=== PATIENT | female | born 1970 | race Caucasian/White ===

== ENCOUNTER 2016-06-12 19:36 | Inpatient (IN) | payer OTHER ==
[~2016-06-12] VITALS: Ht 170.2 cm; Wt 92.1 kg
[~2016-06-12 19:36] MED LIST: ABILIFY2 M1 PO; AMIODARONE HCL200 MG PO; ASPIRIN FOR CHI81 M1 PO; ASPIRIN325 MG PO; ATORVASTATIN CA40 M1 PO; CAT0.1 PO; CLINDAMYCIN; CLONAZEPAM1 MG PO; CLONIDINE HCL0.1 MG PO; CLOPIDOGREL75 M1 PO; COL100 PO; COLACE100 MG PO; COREG12.5 MG PO; DORZOLAMIDE HYD10 ML OD; ENALAPRIL MALEA10 MG PO; FLUTICASON0.05 MG/Ac; GABAPENTIN100 M2 PO; GLIPIZIDE2.5 M1 PO; GLU5 PO; GOOD SENSE ASP325 MG PO; HUMALOG100 U/ML SC; HYDRALAZINE HYD50 MG PO; HYDRALAZINE50 M1 PO; ISOSORBIDE DINIT5 M2 PO; ISTALOL2.5 ML OP; KAYEN PR; KLO1 PO; LAC PO; LACTULOSE10 GM/152 PO; LANTI SQ; LANTUS SOLOS100 U/M1 SC; LANTUS SOLOS100 U/M1 SQ; LEVAQUIN250 MG PO; LEVAQUIN750 MG PO; LEVEMIR100 U/M1 SQ; LEVOTHROID SOD0.1 MG PO; LEVOTHYROXIN0.075 M2 PO; LOP50 PO; METOPROLOL TART50 MG PO; NEP PO; NEPHRO-VITE VITA1 EA PO; NEPHRO-VITE1 TAB PO; NEU100 PO; NIA500 PO; NIFEDIPINE ER30 MG PO; NOR10T PO; NORCO1 TA1 PO; NOVI SQ; NOVOLIN N SQ; OMEPRAZOLE DR20 M1 PO; OMEPRAZOLE20 M2 PO; PHE25 PO; PLA75 PO; PREOS; PREOS OD; PRI20 PO; PRO10 PO; PROCARDIA XL90 MG PO; PROMETHAZINE HY25 M1 PO; REG5 PO; RENVELA PO; RENVELA800 M1 PO; SENSIPAR PO; SENSIPAR30 M1 GT; SENSIPAR30 M1 PO; SERTRALINE100 M1 PO; STOOL SOFTENER100 MG PO; SYN75 PO; TRA50 PO; TRAZODONE HYDR150 MG PO; TRAZODONE150 M1 PO; TRICOR145 M1 PO; TRUOS OD; TRUOS OU; ZOC10 PO; ZOF4 PO; ZOL100 PO; ZOLOFT100 MG PO
--- NOTE | 2016-06-12 19:49 | NUR ---
EKG IN PROGRESS IN TRIAGE
--- NOTE | 2016-06-12 19:54 | NUR ---
PT TO ED LOBBY WITH SPOUSE TO WAIT FOR NEXT AVAILABLE BED. PT IN NO ACUTE OR RESP DISTRESS.
[2016-06-13] VITALS (7 sets, daily range): BP systolic 115–170; BP diastolic 44–76
--- NOTE | 2016-06-13 00:15 | NUR ---
PT PRESENTS TO ED WITH C/O CHEST PAIN STARTING TODAY. PT REPORTS PRESSURE LIKE PAIN 10/19. PT STATES SHE MISSED HER DIALYIS TODAY, STATES, "I'M DEPRESSED AND HOMELESS, AND I'M REALLY STRESSED". PT REPORTS GOING TO DIALYSIS ON MON, SUN, FRI. PT C/O SOB STARTING TODAY. PT DENIES ANY N/V/D/C. RESPIRATIONS EVEN AND UNLABORED. NO ACUTE DISTRESS NOTED. BED IN LOW POSITION. CALL LIGHT WITHIN REACH.
[2016-06-13 00:58] LABS: BASOPHIL % 1.3 % (0-2); PLATELET COUNT 294 x10^3mcL (130-400)
[2016-06-13 01:06] LABS: RED CELL DISTRIBUTION WIDTH 21.5 % (11.5-14.5)
[2016-06-13 01:07] LABS: BILIRUBIN TOTAL 0.51 mg/dL (0.20-1.00); CARBON DIOXIDE 14.7 mmol/L (21-32); TOTAL PROTEIN, SERUM 6.3 g/dL (6.4-8.2)
[2016-06-13 01:12] LABS: ALBUMIN 2.8 g/dL (3.4-5.0)
[2016-06-13 01:14] LABS: POTASSIUM SERUM 6.2 mmol/L (3.5-5.1)
[2016-06-13 01:15] LABS: CREATININE SERUM 14.7 mg/dL (0.6-1.0)
--- NOTE | 2016-06-13 01:17 | NUR ---
PT SITTING IN BED, IN POSITION OF COMFORT. PT ON CELL PHONE. RESPIRATIONS EVEN AND UNLABORED. NO ACUTE DISTRESS NOTED. BED IN LOW POSITION. CALL LIGHT WITHIN REACH.
--- NOTE | 2016-06-13 03:21 | NUR ---
REPORT GIVEN TO KEVIN LANG.
[2016-06-13 03:40] LABS: CHOLESTEROL/HDL RATIO 4.9
[2016-06-13 03:43] LABS: FREE T4 0.79 ng/dL (0.76-1.46); T4(THYROXINE) 6.5 ug/dL (4.7-13.3)
[2016-06-13 03:48] LABS: T3 TOTAL 0.46 ng/mL
--- NOTE | 2016-06-13 04:37 | NUR ---
ABG BEING DONE ON THE PATIENT AND ACCUCHECK DONE 51 REPATED 54,PT ASYSTOMATIC AND WILL CONTINUE TO MONITOR.
--- NOTE | 2016-06-13 04:56 | NUR ---
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
--- NOTE | 2016-06-13 05:03 | NUR ---
HL NOT FLUSABLE NOT ABLE TO GIVE D50 PT AWAKE AND ORIENTED ASYSTOMATIC WAS GIVEN A CUP OF ORANGE JUICE WILL CHECK LATER,PT SLEEPING AT THIS TIME.
--- NOTE | 2016-06-13 06:30 | NUR ---
PT HAD A RESATING NIGHT V/S STABLE,KEPT CLEAN AND DRY TO TOUCH AND WILL CONTINUE TO MONITOR.
--- NOTE | 2016-06-13 06:36 | NUR ---
PT MADE COMFORTABLE IN BED,KEPT CLEAN AND DRY TO TOUCH,CALL LIGHT EASY REACHED AND WILL CONTINUE TO MONITOR.
--- NOTE | 2016-06-13 07:00 | NUR ---
PT SIGN CONSENT FOR H/D ORDER,SEEN BU DR PEARSON,WILL CONTINUE TO MONITOR.
--- NOTE | 2016-06-13 07:30 | NUR ---
PATIENT IS IN BED AWAKE APPEARS DEPRESSED. PATIENT VERBALIZES THAT SHE HAS BEEN STRESSED D/T BEING EVICTED FROM HER APARTMENT. ALSO PER PATIENT SHE HAS NOT GONE TO HER HD FOR ONE WEEK D/T BEING DEPRESSED. HL PATENT RT MIDDLE FINGER. AV SHUNT WITH GOOD BRUTI/THRILL LEFT UPPER ARM. PATIENT IS BLIND IN RT EYE. LUNGS DIMINISHED IN THE BASES, ON ROOM AIR. MULTI DRY SCABS NOTED ON PATIENT'S FACE HANDS AND LEFT LOWER LEG MARKUS, CAUSED PER PATIENT FROM HER PICKING AND SCRATCHING D/T ANXIETY. PATIENT IS ANURIC, LBM YESTERDAY PER PATIENT. DR ISRAEL INTO SEE PATIENT. WILL CONTINUE TO MONITOR.
--- NOTE | 2016-06-13 08:00 | NUR ---
DR CLAROS AND MEDICAL TEAM INTO SEE PATIENT AND DISCUSS PLAN OF CARE.
[2016-06-13 09:15] LABS: BASOPHIL % 0.9 % (0-2); PLATELET COUNT 321 x10^3mcL (130-400)
[2016-06-13 09:16] LABS: RED CELL DISTRIBUTION WIDTH 21.9 % (11.5-14.5)
[2016-06-13 10:19] LABS: acanthocyte (spur cell) 2+; rbc morphology (normal/abnorm) ABNORMAL (NORMAL)
[2016-06-13 10:38] LABS: CALCIUM 8.8 mg/dL (8.5-10.1); CARBON DIOXIDE 16.5 mmol/L (21-32); MAGNESIUM 2.4 mg/dL (1.8-2.4)
[2016-06-13 10:50] LABS: CREATININE SERUM 15.1 mg/dL (0.6-1.0); PHOSPHOROUS 9.8 mg/dL (2.5-4.9); POTASSIUM SERUM 6.7 mmol/L (3.5-5.1)
--- NOTE | 2016-06-13 10:54 | NUR ---
DR ALISA ALLEN FOR RESULTS OF PATIENTS BUN, K+, CREAT, PHOS AT THIS TIME.
--- NOTE | 2016-06-13 11:40 | NUR ---
HD NURSE AT BEDSIDE TO BEGIN HD FOR PATIENT AT THIS TIME.
--- NOTE | 2016-06-13 13:18 | NUR ---
DR CUELLAR AWARE OF PATIENT'S K+, BUN, PULPWOOD CUTTER, AND PHOS RESULTS.
--- NOTE | 2016-06-13 15:12 | NUR ---
PATIENT REMAINS IN BED WITH HD STILL IN PROGRESS. NO CHANGE IN CONDITON NOTED. WILL CONTINUE TO MONITOR.
--- NOTE | 2016-06-13 15:33 | NUR ---
HD COMPLETED VITALS STABLE LAST B/P 148/54. 2,600 OUT. WILL CONTINUE TO MONTIOR.
--- NOTE | 2016-06-13 18:02 | NUR ---
PATIENT IS IN BED. NO CHANGE IN CONDITON NOTED. C/O CHEST DISCOMFORT EARLIER, MEDICATED WITH NORCO PO WITH GOOD EFFECT. SITTING UP IN BED EATING DINNER TRAY. NO ACUTE DISTRESS NOTED. WILL CONTINUE TO MONITOR.
--- NOTE | 2016-06-13 19:30 | NUR ---
PT IS ALERT AND ORIENTED X 4. PLEASANT AND COOPERATIVE. BLIND RIGHT EYE. DIMINISHED LUNG SOUNDS ON AUSCULTATIONS BILATERALLY. CXR- LEFT BASILAR INFILTRATE REPRESENT ATELECTASIS OR PNA, HEART BORDERLINE ENLAGED. NO SOB NOTED. DENIES ANY PAIN. BUT NOTED JUST RECEIVED NORCO AT 1715PM.WAS EFFECTIVE. GENERALIZED BODY WEAKNESS. HAD HEMODIALYSIS TODAY. TOOK OUT 2,600 OUT. ANOTHER HEMODIALYSIS TOMORROW AND SCHEDULED ALREADY. LEFT UPPER ARM AV SHUNT. WITH GOOD BRUIT SOUND. USED TO [facility] HEMODIALYSIS SCHEDULE. MADE COMFORTABLE IN BED.CALL LIGHT WITHIN EASY REACH.
--- NOTE | 2016-06-14 03:15 | NUR ---
PT ASKED FOR A SLEEPING PILL BUT SHE WENT TO SLEEP. DESERYL WAS NOT GIVEN.
--- NOTE | 2016-06-14 05:25 | NUR ---
PT IS RESTING WELL. MADE COMFORTABLE IN BED. CALL LIGHT WITHIN EASY REACH. HAD ONE TIME NORCO AND WAS EFFECTIVE. PT MADE AWARE OF THE HEMODIALYSIS SCHEDULE TODAY. WILL MONITOR.
[2016-06-14 05:43] VITALS: BP 130/60
[2016-06-14 06:28] LABS: BASOPHIL % 1.4 % (0-2); PLATELET COUNT 249 x10^3mcL (130-400)
[2016-06-14 06:38] LABS: CALCIUM 8.1 mg/dL (8.5-10.1); CARBON DIOXIDE 27.8 mmol/L (21-32); MAGNESIUM 1.8 mg/dL (1.8-2.4); PHOSPHOROUS 7.5 mg/dL (2.5-4.9); POTASSIUM SERUM 4.4 mmol/L (3.5-5.1)
[2016-06-14 06:42] LABS: CREATININE SERUM 10.1 mg/dL (0.6-1.0)
[2016-06-14 06:49] LABS: RED CELL DISTRIBUTION WIDTH 22.2 % (11.5-14.5)
--- NOTE | 2016-06-14 10:09 | NUR ---
AT 0710 - RECEIVED PATIENT FROM NIGHT NURSE. PATIENT AWAKE, ALERT AND ORIENTED X 4. RESPIRATIONS REGULAR. NO SOB NOTED AT THIS TIME. ON SUPPLIMENTAL O2 VIA NC AT 2L/MIN. PATIENT IS SCHEDULED FOR ANOTHER HD TODAY. AV SHUNT IN DARIO. IV SALINE LOCK IN R HAND. AT 0815 - SEEN BY DR ISRAEL. RECEIVED NEW ORDER FOR REPEAT CHEST X-RAY. HD NURSE AT BEDSIDE, PREPARING FOR HD. AT 0835 - ANTI-HYPERTENSIVE MEDS HELD AT THIS TIME DUE TO DIALYSIS. AT 0940 - PATIENT SLEEPING. HEMODIALYSIS IN PROGRESS.
[2016-06-14 10:29] VITALS: BP 131/56
[2016-06-14 12:04] VITALS: BP 142/61
--- NOTE | 2016-06-14 12:35 | NUR ---
HEMODIALYSIS COMPLETED. POST HD BP 142/61 HR 63. TOTAL OF 2600 ML REMOVED .
--- NOTE | 2016-06-14 14:00 | NUR ---
PATIENT HAS EATEN LUNCH. NOW RESTING QUIETLY. DRESSING TO DARIO AV SHUNT SITE DRY AND INTACT.
[2016-06-14 14:55] VITALS: BP 156/63
[2016-06-14 18:20] VITALS: BP 114/63
--- NOTE | 2016-06-14 18:59 | NUR ---
VS WNL. AFEBRILE. RESPIRATIONS REGULAR. NO SOB NOTED. AMBULATES IN ROOM. NO C/O PAIN. WILL ENDORSE CARE TO NIGHT NURSE.
--- NOTE | 2016-06-14 19:57 | NUR ---
AAO X4 VERBALIZED NEEDS FEELING TIRED JUST HAVE HD TODAY PUTTING OUT 2600 CC, TOLERATED WELL NO BLEEDING TO DARIO AV SHUNT SITE, HAS PRESSURE DRESSING, IV ACCESS RH PATENT NON INFIL, SCD'S FOR DVT PROPHYLAXIS SKIN WARM DRY TO TOUCH SCABS @ BUE / BLE OTHERWISE NO OTHER SKIN ISSUES, DENIES PAIN NOR DISCOMFORTS DIM LUNGS SOUND AT THE BASES NO COUGHING OR CHEST CONGESTION, SHIFT ASSESSMENT DONE ATTENDED NEEDS CALL LIGHT AT REACH, DISCUSSED CURRENT PLAN OF CARE, RECEPTIVE CONT TO MONITOR.
[2016-06-14 22:15] VITALS: BP 147/60
--- NOTE | 2016-06-14 22:30 | NUR ---
NORCO PO GIVEN FOR C/0 BACK PAIN 09/18 PER ASSESSMENT, PT REPOSITIONED SELF TO COMFORT, CONT TO MONITOR.
--- NOTE | 2016-06-15 06:25 | NUR ---
AM LABS CANNOT BE DRAWN PER COMPENSATION ANALYST HABI, PT IS A HARD STICK, WILL SEND ANOTHER EYEGLASS MAKER TO TRY, WILL ENDORSE FOR F/U.
[2016-06-15 06:29] VITALS: BP 150/54
--- NOTE | 2016-06-15 06:31 | NUR ---
SLEPT WELL DURING THE SHIFT DENIES PAIN NO DISTRESS HAVING MORE STRENGTH TODAY, NEEDS ATTENDED AND MET, CONT TO MONITOR.
[2016-06-15 06:53] LABS: BASOPHIL % 1.2 % (0-2); PLATELET COUNT 274 x10^3mcL (130-400)
[2016-06-15 06:57] LABS: RED CELL DISTRIBUTION WIDTH 21.5 % (11.5-14.5)
[2016-06-15 07:04] LABS: CALCIUM 8.8 mg/dL (8.5-10.1); POTASSIUM SERUM 4.2 mmol/L (3.5-5.1)
--- NOTE | 2016-06-15 07:30 | NUR ---
AT 0710 - RECEIVED PATIENT FROM NIGHT NURSE. PATIENT SLEEPING, RESPIRATIONS REGULAR. CONTINUING TO MONITOR.
[2016-06-15 07:41] LABS: CREATININE SERUM 8.2 mg/dL (0.6-1.0)
[2016-06-15 08:14] LABS: rbc morphology (normal/abnorm) ABNORMAL (NORMAL)
--- NOTE | 2016-06-15 08:17 | NUR ---
PATIENT AWAKE, ALERT AND ORIENTED. PATIENT HAS BEEN PLACED BACK ON O2 BY RT DUE TO LOW O2 SAT OF 87% ON ROOM AIR. NOW SITTING ON SIDE OF BED EATING BREAKFAST. PATIENT EDUCATED IN IMPORTANCE OF GOING FOR HEMODYALISIS ON A REGULAR BASIS SCHEDULED.
--- NOTE | 2016-06-15 08:35 | NUR ---
SEEN BY DR WOMACK DURING MORNING ROUNDS. MEDICAL TEAM DOCTORS, [place] AND MYSELF PRIMARY NURSE ALSO PRESENT. DR WOMACK INSTRUCTED PATIENT ABOUT IMPORTANCE OF ATTENDING REGULAR HEMODIALYSIS. ALSO SEEN BY DR ISRAEL. PATIENT INSTRUCTED TO USE INSENTIVE SPIROEMTER.
[2016-06-15 08:47] VITALS: BP 144/58
--- NOTE | 2016-06-15 12:38 | NUR ---
AT 1205 - RECEIVED CALL FROM RUTHIE, PATIENT'S [facility] NURSE, WANTING TO CONFIRM THAT PATIENT HAS A PLACE TO STAY UPON DISCHARGE. ACCORDING TO PATIENT, SHE AND HER ARE CURRENTLY STAYING WITH HER [id number]. OUR LEGAL WRITING PROFESSOR SHERICE HAS BEEN IN CONTACT WITH MICAELA PEREZ DC FRYLINE ATTENDANT FROM [facility]. AT 1230 - PATIENT SITTING ON SIDE OF BED, EATING LUNCH. HAS BEEN OFF O2. CURRENT O2 SAT 96% ON ROOM AIR. RECEIVED DISCHARGE ORDERS.
[2016-06-15] MEDS ORDERED: NEPHRO-VITE VITA1 EA PO (14:31)
[2016-06-15] MEDS ORDERED: TRAZODONE HYDROCHLOR PO (14:33)
[2016-06-15] MEDS ORDERED: [UNRECOGNIZED DRUG - OTHER] PO (14:34)
[2016-06-15] MEDS ORDERED: [UNRECOGNIZED DRUG - OTHER] PO (14:35)
[2016-06-15 14:39] VITALS: BP 144/58
--- NOTE | 2016-06-15 15:11 | NUR ---
PRINTED DISCHARGE INSTRUCTIONS GIVEN AND EXPLAINED TO PATIENT. PRESCRIPTON PROVIDED FOR LANCETS AND GLUCOSE STRIPS. PATIENT REPORTS THAT SHE HAS A GLUCOSE METER AND KNOWS HOW TO USE IT. IMPORTANCE OF GOING FOR DIALYSIS STRESSED ONCE AGAIN. PATIENT VERBALIZED UNDERSTANDING. IV CATHTER REMOVED INTACT. DISCHARGED HOME WITH . TAKEN TO DISCHARGE OFFCE IN WHEELCHAIR BY ALEKSEY.
== END 2016-06-15 15:10 | disposition home or self-care (01) | DRG 391 ==
LOC: ED 19:36 → MU 06-13 01:41 → DU 06-13 01:41 → MU 06-14 08:46
PROVIDERS: Emergency Medicine; Family Medicine; Internal Medicine Nephrology; ADMIT Family Medicine
DX: K21.9 Gastro-esophageal reflux disease without esophagitis (principal); N18.6 End stage renal disease; N17.0 Acute kidney failure with tubular necrosis; E43 Unspecified severe protein-calorie malnutrition; J96.01 Acute respiratory failure with hypoxia; I12.0 Hypertensive chronic kidney disease with stage 5 chronic kidney disease or end stage renal disease; I42.0 Dilated cardiomyopathy; E87.5 Hyperkalemia; E83.39 Other disorders of phosphorus metabolism; I25.10 Atherosclerotic heart disease of native coronary artery without angina pectoris; E11.21 Type 2 diabetes mellitus with diabetic nephropathy; E11.42 Type 2 diabetes mellitus with diabetic polyneuropathy; E11.319 Type 2 diabetes mellitus with unspecified diabetic retinopathy without macular edema; I27.2 Other secondary pulmonary hypertension; E03.8 Other specified hypothyroidism; E78.5 Hyperlipidemia, unspecified; I16.0 Hypertensive urgency; H54.41 Blindness, right eye, normal vision left eye; F41.8 Other specified anxiety disorders; E66.9 Obesity, unspecified; Z68.31 Body mass index [BMI] 31.0-31.9, adult; Z59.0 Homelessness; I25.2 Old myocardial infarction; Z79.82 Long term (current) use of aspirin; Z95.1 Presence of aortocoronary bypass graft; Z87.891 Personal history of nicotine dependence; Z79.84 Long term (current) use of oral hypoglycemic drugs; Z95.5 Presence of coronary angioplasty implant and graft; Z91.19 Patient's noncompliance with other medical treatment and regimen
CPT/HCPCS: 36600; 82962; 83880; 84439; J1815; J3490; J7030; J7620; Q0092

== ENCOUNTER 2016-07-12 17:04 | Inpatient (IN) | payer OTHER ==
[~2016-07-12] VITALS: Ht 170.2 cm; Wt 85.7 kg
[~2016-07-12 17:04] MED LIST changes: +TRAZODONE HYDROCHLOR PO; +[UNRECOGNIZED DRUG - OTHER] PO; +[UNRECOGNIZED DRUG - OTHER] PO
[2016-07-12 18:50] LABS: BASOPHIL % 0.6 % (0-2); PLATELET COUNT 348 x10^3mcL (130-400)
[2016-07-12 18:56] LABS: RED CELL DISTRIBUTION WIDTH 23.4 % (11.5-14.5)
[2016-07-12 19:00] LABS: BILIRUBIN TOTAL 0.7 mg/dL (0.20-1.00); CALCIUM 9.7 mg/dL (8.5-10.1); CARBON DIOXIDE 31.4 mmol/L (21-32); TOTAL PROTEIN, SERUM 6.5 g/dL (6.4-8.2)
[2016-07-12 19:05] LABS: ALBUMIN 2.8 g/dL (3.4-5.0)
[2016-07-12 19:07] LABS: POTASSIUM SERUM 6.5 mmol/L (3.5-5.1)
[2016-07-12] MEDS ORDERED: KLONOPIN1 MG PO (20:08)
[2016-07-12] MEDS ORDERED: TRAZODONE50 M1 PO (20:10)
[2016-07-12] MEDS ORDERED: CATAPRES0.1 MG PO (20:11)
[2016-07-12] MEDS ORDERED: AMIODARONE HCL200 MG PO (20:12)
[2016-07-12] MEDS ORDERED: ATORVASTATIN CA40 M1 PO (20:15)
[2016-07-12 20:20] VITALS: BP 120/59
[2016-07-12 20:40] LABS: CHOLESTEROL/HDL RATIO 4.1
[2016-07-12 20:42] LABS: T3 TOTAL 0.53 ng/mL
[2016-07-12 20:46] LABS: FREE T4 0.74 ng/dL (0.76-1.46); FREE THYROXINE INDEX 2.1 ug/dL (1.4-4.5); T4(THYROXINE) 6.4 ug/dL (4.7-13.3)
[2016-07-12 21:25] VITALS: BP 120/59
[2016-07-13 05:10] LABS: BASOPHIL % 0.7 % (0-2); PLATELET COUNT 338 x10^3mcL (130-400)
[2016-07-13 05:26] LABS: CALCIUM 9.5 mg/dL (8.5-10.1); CARBON DIOXIDE 33.6 mmol/L (21-32); PHOSPHOROUS 4.8 mg/dL (2.5-4.9)
[2016-07-13 05:28] LABS: CREATININE SERUM 6.7 mg/dL (0.6-1.0)
[2016-07-13 05:57] LABS: rbc morphology (normal/abnorm) ABNORMAL (NORMAL)
[2016-07-13 06:58] VITALS: BP 118/57
[2016-07-13 10:55] VITALS: BP 141/68
[2016-07-13 13:40] VITALS: BP 111/60
[2016-07-13 17:00] VITALS: BP 128/75
[2016-07-13 23:59] VITALS: BP 147/87
[2016-07-14 05:48] VITALS: BP 111/63
[2016-07-14 06:19] LABS: BASOPHIL % 1.2 % (0-2); PLATELET COUNT 295 x10^3mcL (130-400)
[2016-07-14 07:17] LABS: CARBON DIOXIDE 31.4 mmol/L (21-32); MAGNESIUM 1.7 mg/dL (1.8-2.4); POTASSIUM SERUM 4.1 mmol/L (3.5-5.1)
[2016-07-14 07:19] LABS: CREATININE SERUM 5.4 mg/dL (0.6-1.0)
[2016-07-14 09:24] VITALS: BP 125/59
[2016-07-14 12:34] VITALS: BP 125/59
[2016-07-14 13:09] VITALS: BP 116/54
== END 2016-07-14 17:03 | disposition home or self-care (01) | DRG 391 ==
LOC: ED 17:04 → DU 19:21
PROVIDERS: Specialist; ADMIT Family Medicine
DX: K21.9 Gastro-esophageal reflux disease without esophagitis (principal); N18.6 End stage renal disease; I50.43 Acute on chronic combined systolic (congestive) and diastolic (congestive) heart failure; E43 Unspecified severe protein-calorie malnutrition; I42.0 Dilated cardiomyopathy; D68.69 Other thrombophilia; I42.2 Other hypertrophic cardiomyopathy; I13.2 Hypertensive heart and chronic kidney disease with heart failure and with stage 5 chronic kidney disease, or end stage renal disease; E11.51 Type 2 diabetes mellitus with diabetic peripheral angiopathy without gangrene; E11.21 Type 2 diabetes mellitus with diabetic nephropathy; E11.319 Type 2 diabetes mellitus with unspecified diabetic retinopathy without macular edema; I27.2 Other secondary pulmonary hypertension; E87.5 Hyperkalemia; D63.1 Anemia in chronic kidney disease; K72.90 Hepatic failure, unspecified without coma; E02 Subclinical iodine-deficiency hypothyroidism; F41.8 Other specified anxiety disorders; I25.10 Atherosclerotic heart disease of native coronary artery without angina pectoris; G47.00 Insomnia, unspecified; H54.41 Blindness, right eye, normal vision left eye; Z59.0 Homelessness; E66.9 Obesity, unspecified; Z99.2 Dependence on renal dialysis; Z68.29 Body mass index [BMI] 29.0-29.9, adult; Z95.1 Presence of aortocoronary bypass graft; Z87.891 Personal history of nicotine dependence; Z91.15 Patient's noncompliance with renal dialysis; Z79.84 Long term (current) use of oral hypoglycemic drugs; Z95.5 Presence of coronary angioplasty implant and graft
CPT/HCPCS: 36600; 80307; 82962; 83880; 84439; J0610; J1642; J1644; J1815; J1885; J2270; J2405; J3010; J3490; J7030; J7042; J7620; Q0092

== ENCOUNTER 2016-09-11 20:40 | Inpatient (IN) | payer OTHER ==
[~2016-09-11] VITALS: Ht 170.2 cm; Wt 83.0 kg
[~2016-09-11 20:40] MED LIST changes: +CATAPRES0.1 MG PO; +KLONOPIN1 MG PO; +LEVOTHYROXINE PO; +TRAZODONE50 M1 PO; -[UNRECOGNIZED DRUG - OTHER] PO
[2016-09-11 23:12] LABS: PLATELET COUNT 492 x10^3mcL (130-400); RED CELL DISTRIBUTION WIDTH 17.5 % (11.5-14.5)
[2016-09-11 23:25] LABS: BILIRUBIN TOTAL 0.6 mg/dL (0.20-1.00); CARBON DIOXIDE 19.1 mmol/L (21-32); TOTAL PROTEIN, SERUM 6.6 g/dL (6.4-8.2)
[2016-09-11 23:32] LABS: ALBUMIN 2.1 g/dL (3.4-5.0)
[2016-09-11 23:33] LABS: POTASSIUM SERUM 6.8 mmol/L (3.5-5.1)
[2016-09-11 23:34] LABS: CREATININE SERUM 16.2 mg/dL (0.6-1.0)
[2016-09-11 23:37] LABS: CK-MB 27.5 ng/mL (0-3.6)
[2016-09-12 01:10] VITALS: BP 140/70
[2016-09-12 02:04] LABS: PHOSPHOROUS 7.3 mg/dL (2.5-4.9)
[2016-09-12 02:05] LABS: CHOLESTEROL/HDL RATIO 6.3
[2016-09-12 02:13] LABS: FREE T4 0.52 ng/dL (0.76-1.46); T4(THYROXINE) 6.1 ug/dL (4.7-13.3)
[2016-09-12] MEDS ORDERED: BAYER ASPIRIN R81 MG PO (02:41)
[2016-09-12 02:56] LABS: CALCIUM 8.4 mg/dL (8.5-10.1); CARBON DIOXIDE 19.7 mmol/L (21-32); POTASSIUM SERUM 5.5 mmol/L (3.5-5.1)
[2016-09-12 02:59] LABS: CREATININE SERUM 15.3 mg/dL (0.6-1.0)
[2016-09-12 03:07] LABS: T3 TOTAL 0.4 ng/mL
[2016-09-12 05:54] VITALS: BP 137/37
[2016-09-12 11:03] VITALS: BP 126/72
[2016-09-12 14:28] VITALS: BP 126/38
[2016-09-12 17:40] VITALS: BP 117/60
[2016-09-12 20:09] LABS: APPEARANCE FLUID TURBID; COLOR FLUID RED; LYMPHOCYTE FLUID 19 %; MONOCYTE FLUID 8 %; RBC FLUID 32888 /cumm; SOURCE FLUID PARACENTESIS; WBC FLUID 134 /cumm
[2016-09-12 20:34] VITALS: BP 106/49
[2016-09-13 05:36] VITALS: BP 124/52
[2016-09-13 06:50] LABS: CALCIUM 8.7 mg/dL (8.5-10.1); MAGNESIUM 1.8 mg/dL (1.8-2.4); PHOSPHOROUS 6.3 mg/dL (2.5-4.9); POTASSIUM SERUM 4.5 mmol/L (3.5-5.1)
[2016-09-13 07:25] LABS: CREATININE SERUM 9.9 mg/dL (0.6-1.0)
[2016-09-13 08:13] LABS: BASOPHIL % 0.4 % (0-2)
[2016-09-13 08:16] LABS: PLATELET COUNT 460 x10^3mcL (130-400)
[2016-09-13 09:00] VITALS: BP 124/54
[2016-09-13 13:34] VITALS: BP 143/65
[2016-09-13 17:32] VITALS: BP 116/66
[2016-09-13 19:40] VITALS: BP 102/54
[2016-09-13 21:52] VITALS: BP 110/48
[2016-09-14 05:45] VITALS: BP 101/43
[2016-09-14 07:50] LABS: BASOPHIL % 0.7 % (0-2); PLATELET COUNT 407 x10^3mcL (130-400); RED CELL DISTRIBUTION WIDTH 17.8 % (11.5-14.5)
[2016-09-14 08:43] LABS: CALCIUM 8.9 mg/dL (8.5-10.1); CARBON DIOXIDE 26.9 mmol/L (21-32); MAGNESIUM 1.6 mg/dL (1.8-2.4); PHOSPHOROUS 4.9 mg/dL (2.5-4.9)
[2016-09-14 10:15] VITALS: BP 107/48
[2016-09-14] MEDS ORDERED: FREESTYLE LITE1 EACH MC (11:16)
[2016-09-14] MEDS ORDERED: ACCU-CHEK1 EACH MC (11:19)
[2016-09-14 12:26] VITALS: BP 107/48
[2016-09-14] MEDS ORDERED: ZITHROMAX250 MG PO (15:52)
[2016-09-14] MEDS ORDERED: LAC PO (15:58)
[2016-09-14 17:10] VITALS: BP 113/60
[2016-09-14] MEDS ORDERED: BACTRIM1 TAB PO (21:48)
== END 2016-09-14 18:57 | disposition home or self-care (01) | DRG 640 ==
LOC: ED 20:40 → DU 09-12 00:21
PROVIDERS: Emergency Medicine; ADMIT Family Medicine
PROC: 0W9G3ZZ Drainage of Peritoneal Cavity, Percutaneous Approach (ICD-10-PCS; principal; 2016-09-12)
DX: E87.5 Hyperkalemia (principal); G93.41 Metabolic encephalopathy; N18.6 End stage renal disease; E43 Unspecified severe protein-calorie malnutrition; J18.9 Pneumonia, unspecified organism; I50.43 Acute on chronic combined systolic (congestive) and diastolic (congestive) heart failure; I13.2 Hypertensive heart and chronic kidney disease with heart failure and with stage 5 chronic kidney disease, or end stage renal disease; D68.69 Other thrombophilia; R18.8 Other ascites; E11.65 Type 2 diabetes mellitus with hyperglycemia; E11.42 Type 2 diabetes mellitus with diabetic polyneuropathy; E11.21 Type 2 diabetes mellitus with diabetic nephropathy; E11.319 Type 2 diabetes mellitus with unspecified diabetic retinopathy without macular edema; E11.51 Type 2 diabetes mellitus with diabetic peripheral angiopathy without gangrene; F32.9 Major depressive disorder, single episode, unspecified; E83.51 Hypocalcemia; E83.42 Hypomagnesemia; F41.8 Other specified anxiety disorders; E78.5 Hyperlipidemia, unspecified; E83.39 Other disorders of phosphorus metabolism; G47.00 Insomnia, unspecified; E03.9 Hypothyroidism, unspecified; I25.2 Old myocardial infarction; Z99.2 Dependence on renal dialysis; I25.10 Atherosclerotic heart disease of native coronary artery without angina pectoris; Z95.1 Presence of aortocoronary bypass graft; Z87.891 Personal history of nicotine dependence; Z91.15 Patient's noncompliance with renal dialysis; Z79.84 Long term (current) use of oral hypoglycemic drugs
CPT/HCPCS: 82962; 83880; 84439; B4164; J0456; J0610; J0696; J1815; J2270; J2405; J3490; J7030; Q0092

== ENCOUNTER 2016-10-03 20:37 | Inpatient (IN) | payer OTHER ==
[~2016-10-03] VITALS: Ht 170.2 cm; Wt 82.2 kg
[~2016-10-03 20:37] MED LIST changes: +ACCU-CHEK1 EACH MC; +BACTRIM1 TAB PO; +BAYER ASPIRIN R81 MG PO; +FREESTYLE LITE1 EACH MC; +ZITHROMAX250 MG PO
--- NOTE | 2016-10-03 21:08 | NUR ---
RECEIVED 46 Y//O FEMALE CAME TO ED C/O OF NAUSEA, ABD PAIN X4D, LOW BACK PAIN X4D, CHEST PAIN X1D. 9/10 PAIN PER PT. PT STATES SHE HAD DIALYSIS TODAY, USUALLY MWF. AV FISTULA TO RIGHT UPPER ARM, WITH POS THRILL/BRUIT. PT STATES HX OF CIRROHSIS, ACIETES, HTN, DM, DEPRESSION, ANXIETY, CHF, CABG, AND INSOMNIA. ABD IS FIRM/DISTENDED/TENDER WITH ACTIVE BS X4 QUADRANTS, PT STATES SHE USUALLY GETS ADMITTED. PT HAS MULTIPLE SKIN LESIONS THROUGHT HER BODY IN DIFFERENT HEALING STAGES. PT IS AOX4, RESPIRATIONS ARE EVEN AND UNLABORED. BED LOCKED AND IN LOWEST POSITION. CALL LIGHT WITHIN REACH. WILL CONTINUE TO MONITOR.
[2016-10-03 22:11] LABS: BILIRUBIN TOTAL 0.6 mg/dL (0.20-1.00); CALCIUM 8.6 mg/dL (8.5-10.1); CARBON DIOXIDE 29.3 mmol/L (21-32); POTASSIUM SERUM 4.3 mmol/L (3.5-5.1); TOTAL PROTEIN, SERUM 7.6 g/dL (6.4-8.2)
[2016-10-03 22:13] LABS: ALBUMIN 2.3 g/dL (3.4-5.0)
[2016-10-03 22:14] LABS: CREATININE SERUM 7.3 mg/dL (0.6-1.0)
[2016-10-03 22:29] LABS: BASOPHIL % 0.1 % (0-2); PLATELET COUNT 522 x10^3mcL (130-400); RED CELL DISTRIBUTION WIDTH 17.4 % (11.5-14.5)
[2016-10-03 22:34] LABS: CK-MB 10.9 ng/mL (0-3.6)
--- NOTE | 2016-10-03 23:38 | NUR ---
PT IS C/O OF NAUSEA, BACK AND ABD PAIN, DR FLORES AWARE.
[2016-10-04] VITALS (7 sets, daily range): BP systolic 108–141; BP diastolic 46–65
--- NOTE | 2016-10-04 00:17 | NUR ---
PT MEDICATED PER MD ORDERS
[2016-10-04] MEDS ORDERED: ZOLOFT100 MG PO (00:29)
[2016-10-04 00:44] LABS: T3 TOTAL 0.37 ng/mL
[2016-10-04 00:53] LABS: MAGNESIUM 2.3 mg/dL (1.8-2.4); PHOSPHOROUS 5.7 mg/dL (2.5-4.9)
[2016-10-04 00:57] LABS: CHOLESTEROL/HDL RATIO 4.9
[2016-10-04 01:01] LABS: FREE T4 0.71 ng/dL (0.76-1.46); FREE THYROXINE INDEX 2.2 ug/dL (1.4-4.5); T4(THYROXINE) 6.6 ug/dL (4.7-13.3)
--- NOTE | 2016-10-04 01:09 | NUR ---
RECEIVED PT FROM ED VIA JELENA. ORIENTED PT TO ROOM AND SURROUNDINGS. IV NOTED TO RIGHT INDEX FINGER PATENT AND INTACT. TELE 6 PLACED ON PT READING SR WITH BBB. INSTRUCTED PT ON THE USE OF CALL LIGHT FOR ASSISTANCE. ENDORSED PT TO PRIMARY NURSE RAFAELA
--- NOTE | 2016-10-04 04:14 | NUR ---
PATIENT COMPLAINED OF DULL/ACHING ABDOMINAL/BACK PAIN, PS 10/10. MEDICATED WITH MORPHINE SULFATE 2MG IVP ORDERED. WILL REASSESS PATIENT.
--- NOTE | 2016-10-04 06:03 | NUR ---
PATIENT AWAKE, RESTING IN BED. RESPIRATION EVEN AND UNLABORED, ON ROOM AIR. DENIES PAIN AT THIS TIME. SALINE LOCK TO RIGHT INDEX FINGER PATENT AND INTACT. LEFT ARM PRECAUTION OBSERVED. ASSISTED WITH NEEDS. SAFETY OBSERVED. PLACED CALL LIGHT WITHIN REACH AT ALL TIMES. WILL CONTINUE TO MONITOR.
--- NOTE | 2016-10-04 07:20 | NUR ---
PT SEEN REST ON BED, AA/O X4. PT COMPLAIN OF ABD AND BACK PAIN, AND FEELING NAUSEA. WILL PROVIDE PAIN MANAGEMENT PER ORDER. PT BREATHING ON RA, EVEN, UNLABORED. IV SITE IS BLOCKED, NEED TO REINSERT NEW IV.
--- NOTE | 2016-10-04 15:29 | NUR ---
echocardiogram pending nurse with patient
--- NOTE | 2016-10-04 16:45 | NUR ---
PT'S GLUCOSE CHECK 72, APPLE JUICE GIVEN TO MAINTAIN GLUCOSE LEVEL TO DINNER TIME.
--- NOTE | 2016-10-04 18:27 | NUR ---
PT IS EATING DINNER. NO COMPLAIN OF PAIN AT THIS TIME. BREATHING ON O2 1.5L VIA NC. EVEN, UNLABORED. IV SITE SALINE LOCK. HD NURSE AWARE ABOUT HD ORDER.
--- NOTE | 2016-10-04 20:05 | NUR ---
RECEIVED AWAKE IN SUPINE POSITION WATCHING TV. SKIN WARM ANBD DRY TO TOUCH . C/O SEVERE PA ON THELEFT LOWER EXTREMITY ON SCALE 8/10. MORPHINE 2MG IVPN PRN MEDICATION. PLACED CALL LIGHT WITHIN REACH, INSTRUCTED TO CALL FOR ANY ASSSITANCE NEEDED AND VERBALIZED UNDERSTANDING.
--- NOTE | 2016-10-04 22:06 | NUR ---
ALERT AND VERBALLY RERSPONISVE. ABLE TO MAKE NEEDS KNOWN. DENIES ANY PAIN/DISCOMFORT AT THIS TIME, WAS GIVEN NORRAJIV AT 1819 BY AM NURSE AND VERY EFFECTIVE. APPARENTLY COMFORTABLE AT THIS TIME.
--- NOTE | 2016-10-04 23:59 | NUR ---
PT C/O NAUSEA AND PAIN IN BACK AND ABD 11/19, MEDICATED ORDERED. C/O SWEATING, STATING, "I THINK MY BLOOD SUGAR IS LOW." CHECKED BS AT 134. PT IN BED, WILL CONTINUE TO MONITOR
--- NOTE | 2016-10-05 00:30 | NUR ---
ABLE TO SLEEP AT SHORT INTERVALS AFTER GIVEN MORPHINE AND ZOFRAN IV. REPOSITIONED SELF IN BED. IV SITE AT THE RIGHT FOREARM INTACT AND PATENT. REMAINED HEPLOCKED. WILL CONTINUE TO MONITOR.
[2016-10-05 06:00] VITALS: BP 123/54
[2016-10-05 06:14] LABS: BASOPHIL % 0.3 % (0-2)
--- NOTE | 2016-10-05 06:23 | NUR ---
BLOOD SUGAR CHECKED 121MG/DL. NO S/S OF GLAYZCEMIC REACTION. PAIN LEVEL AT THIS TIME 0/10. APPARENTLY COMFORTABLE AT THIS TIME. FOR POSSIBLE HEMODIALYSIS TODAY. PT AWARE. ALL NEEDS ATTENDED.
[2016-10-05 06:28] LABS: PLATELET COUNT 423 x10^3mcL (130-400); RED CELL DISTRIBUTION WIDTH 17.3 % (11.5-14.5)
[2016-10-05 06:34] LABS: CALCIUM 8.4 mg/dL (8.5-10.1); CARBON DIOXIDE 25.8 mmol/L (21-32); PHOSPHOROUS 6.6 mg/dL (2.5-4.9); POTASSIUM SERUM 4.8 mmol/L (3.5-5.1)
[2016-10-05 06:35] LABS: IRON 27 ug/dL (50-170); TOTAL IRON BINDING CAPACITY 151 ug/dL (250-450)
[2016-10-05 06:37] LABS: CREATININE SERUM 9.1 mg/dL (0.6-1.0)
--- NOTE | 2016-10-05 06:39 | NUR ---
BUN/CREAT=45/9.1, PT WILL HAVE HEMODIALYSIS TONIGHT, CHARGE NURSE/MD AWARE. DENIES ANY PAIN/DISCOMFORT AT THIS TIME. ALL NEEDS ATTENDED.
[2016-10-05] MEDS ORDERED: LEVOTHYROXINE0.1 M2 PO (06:45)
--- NOTE | 2016-10-05 06:58 | NUR ---
KLONOPIN 1MG GIVEN PO FOR SEVERE ANXIETY. HEDIALYSIS IN PROGRESS. KEPT CLEAN AND DRY
--- NOTE | 2016-10-05 07:10 | NUR ---
PATIENT IS BEING DIALYZED AT THIS TIME, AWAKE AND ALERT, ABLE TO MAKE NEEDS KNOWN, DENIES DISCOMFORT AT THIS TIME, ON TELE #6 SR W/BBB, IV AT [facility], AVSHUNT AT [facility], CALL LIGHT WITHIN REACH, WILL CONTINUE TO PROVIDE CARE.
--- NOTE | 2016-10-05 07:43 | NUR ---
echocardiogram pending patient having dialysis
--- NOTE | 2016-10-05 09:58 | NUR ---
PT IS BEING DIALYZED, BP HAS BEEN DECREASING, WILL HOLD BP MED PER TAR POT WORKER, AND REASSESS AFTER TX, PATIENT DENIES S&S OF HYPOTENSION, CALL LIGHT WITHIN REACH.
[2016-10-05 10:24] VITALS: BP 100/55
[2016-10-05 10:25] VITALS: BP 90/59
--- NOTE | 2016-10-05 10:32 | NUR ---
DIALYSIS COMPLETED AT 1010, 2.1L REMOVED, CURRENT BP 94/62, HR 77, C/O GENERALIZED PAIN, WILL PROVIDE PAIN ORDERED, CALL LIGHT WITHIN REACH, WILL MONITOR CLOSELY FOR ADEQUATE PAIN MANAGEMENT.
--- NOTE | 2016-10-05 13:10 | NUR ---
DR GARCIA AT FACILITY TO EVAL PATIENT.
--- NOTE | 2016-10-05 13:28 | NUR ---
DR GARCIA AT FACILITY TO EVAL PT, HD ORDERED FOR 10/06/16. US ABD FOR ASCITIS EVAL COMPLETED.
--- NOTE | 2016-10-05 15:52 | NUR ---
C/O GENERALIZED PAIN, DR ALVARADO MADE AWARE OF PT'S BP, DR ALVARADO RECOMMENDS HOLDING THE MORPHINE DOSE 2/2 UPCOMING PARACENTESIS, DOSE OF NORCO ADMINISTERED ORDERED, PT IS RESTING IN BED, CALL LIGHT WITHIN REACH.
[2016-10-05 17:09] VITALS: BP 104/35
--- NOTE | 2016-10-05 19:51 | NUR ---
PARACENTESIS ORDERED, DR ALVARADO CONSENTED PATIENT, PATIENT RESTING IN BED, UNDER NO APPARENT DISTRESS, CARE ENDORSED TO NIGHT NURSE.
--- NOTE | 2016-10-05 20:06 | NUR ---
AWAKE AND VERBALLY RESPONISVE. ABLE TO MAKE NEEDS KNOWN. ABDOMEN OBESE, DISTENDED AND TENDER. FOR POSSIBLE PARACENTESIS TODAY. PARACENTESIS KIT AT BEDSIDE. PT AWARE OF IMPENDING PROCEDURE. DENIES LEYDA DISCOMOFRT AT THIS TIME. WILL CONTINUE TO MONITOR.
[2016-10-05 21:45] VITALS: BP 122/56
--- NOTE | 2016-10-06 00:01 | NUR ---
EYES CLOSED,NO FACIAL GRIMACING NOTED. RESPIRATION EBVEN AND UNLAVORED. NO S/S OF PAIN/DISCOMOFRT. CALL LIGHT WITHIN REACH.
[2016-10-06 06:16] VITALS: BP 118/55
--- NOTE | 2016-10-06 06:17 | NUR ---
NO S/S OF PAIN/DISCOMFORT AT THIS TIME. ALL NEEDS ATTENDED.
[2016-10-06 06:24] LABS: CARBON DIOXIDE 26.2 mmol/L (21-32); PHOSPHOROUS 5.5 mg/dL (2.5-4.9); POTASSIUM SERUM 4.6 mmol/L (3.5-5.1)
[2016-10-06 06:31] LABS: BASOPHIL % 0.8 % (0-2); PLATELET COUNT 386 x10^3mcL (130-400)
[2016-10-06 06:41] LABS: RED CELL DISTRIBUTION WIDTH 17.5 % (11.5-14.5)
[2016-10-06 06:51] LABS: CREATININE SERUM 6.4 mg/dL (0.6-1.0)
--- NOTE | 2016-10-06 06:54 | NUR ---
BUN/CREAT=35/6.4, MD AWARE/CHARGE NURSE AWARE, PT WILL HAVE REPEAT HD PREVIOUSLY SCHEDULED.
--- NOTE | 2016-10-06 07:45 | NUR ---
PATIENT SITTING UP IN BED AAOX4, ABLE TO COMMUNICATE AND FOLLOW COMMANDS, NO DISTRESS NOTED, SPEECH CLEAR AND DENIES HEADACHE OR DIZZINESS. TELE# [address] AND DENIES CHEST PAIN. PALPABLE PULSES TO BUE/BLE. ON ROOM AIR, DENIES SOB, AND RESPIRATIONS EVEN AND UNLABORED. DENIES N/V/D. AV SHUNT NOTED TO DARIO CDI WITH BRUIT/THRILL PRESENT. DENIES PAIN. SALINE LOCK TO THE [facility] CDI. CALL LIGHT AND BELONGINGS WITHIN REACH, FALL PRECAUTIONS IN PLACE, AND WILL CONTINUE TO MONITOR.
[2016-10-06 10:17] VITALS: BP 129/61
[2016-10-06 10:30] VITALS: Ht 170.2 cm; Wt 82.2 kg
--- NOTE | 2016-10-06 11:35 | NUR ---
PATIENT WENT DOWN FOR CT OF ABD AND PELVIS, AAOX4, NO DISTRESS NOTED, WILL CONTINUE TO MONITOR.
[2016-10-06 13:46] VITALS: BP 106/65
--- NOTE | 2016-10-06 15:15 | NUR ---
AT BEDSIDE PERFORMING PARACENTESIS, PATIENT TOLERATING WELL, WILL CONTINUE TO MONITOR.
--- NOTE | 2016-10-06 15:42 | NUR ---
PARACENTESIS DONE WITH 4.5L OUT, PATIENT TOLERATED WELL, NO DISTRESS NOTED, CALL LIGHT AND BELONGINGS WITHIN REACH AND WILL CONTINUE TO MONITOR.
--- NOTE | 2016-10-06 16:27 | NUR ---
PATIENT C/O ACHING PAIN 10/19 TO PARACENTESIS SITE TO ABD, MORPHINE 2MG IVP Q3H PRN GIVEN FOR PAIN, NO DISTRESS NOTED, RESPIRATIONS EVEN AND UNLABORED, CALL LIGHT AND BELONGINGS WITHIN REACH, AND WILL CONTINUE TO MONITOR.
--- NOTE | 2016-10-06 17:24 | NUR ---
PATIENT C/O ANXIETY AND KLONOPIN 1MG PO Q12H PRN GIVEN FOR ANXIETY, NO DISTRESS NOTED, CALL LIGHT AND BELONGINGS WITHIN REACH, AND WILL CONTINUE TO MONITOR.
[2016-10-06 17:46] VITALS: BP 126/54
--- NOTE | 2016-10-06 18:29 | NUR ---
PATIENT RECEIVING HD AT BEDSIDE, PATIENT AAOX4, NO DISTRESS NOTED, RESPIRAITONS EVEN AND UNLABORED, SALINE LOCK TO RFA CDI, CALL LIGHT AND BELONGINGS WITHIN REACH, AND WILL CONTINUE TO MONITOR.
--- NOTE | 2016-10-06 18:35 | NUR ---
D/C TELE PER DOCTORS ORDER.
[2016-10-06 20:07] LABS: APPEARANCE FLUID BLOODY; COLOR FLUID RED; SOURCE FLUID PARACENTESIS
[2016-10-06 20:08] LABS: LYMPHOCYTE FLUID 10 %; MONOCYTE FLUID 11 %; RBC FLUID 100000 /cumm; WBC FLUID 450 /cumm
--- NOTE | 2016-10-06 20:33 | NUR ---
RECEIVED PATIENT AWAKE, ALERT, ORIENTED X4 IN BED. ONGOIND HEMODIALYSIS. RESPIRATION EVEN AND UNLABORED, ON ROOM AIR. ANURIC. AV SHUNT TO LFA INTACT. ABDOMEN ROUND/SOFT. S/P PARACENTESIS TODAY. GENERALIZED WEAKNESS NOTED. SCATTERED DRY SCABS TO BUE/BLE. SALINE LOCK TO RFA. SCD'S TO BLE. DENIES PAIN AT THIS TIME. WILL CONTINUE TO MONITOR.
[2016-10-06 21:06] VITALS: BP 103/54
--- NOTE | 2016-10-06 21:51 | NUR ---
PATIENT COMPLAINING OF BACK/ABDOMINAL PAIN, DULL/ACHING IN NATURE, PS 8/10. MEDICATED WITH MORPHINE SULFATE 2MG IVP ORDERED. WILL REASSESS PATIENT.
--- NOTE | 2016-10-07 02:43 | NUR ---
PATIENT COMPLAINED OF DULL/ACHING BACK AND ABDOMINAL PAIN, PS 8/10. MEDICATED WITH MORPHINE SULFATE 2MG IVP ORDERED. WILL REASSESS PATIENT.
[2016-10-07 05:47] VITALS: BP 108/43
[2016-10-07 06:11] LABS: BASOPHIL % 0.7 % (0-2); PLATELET COUNT 341 x10^3mcL (130-400)
[2016-10-07 06:17] LABS: CALCIUM 8.7 mg/dL (8.5-10.1); CARBON DIOXIDE 30.9 mmol/L (21-32); PHOSPHOROUS 4.4 mg/dL (2.5-4.9); POTASSIUM SERUM 3.6 mmol/L (3.5-5.1)
[2016-10-07 06:42] LABS: RED CELL DISTRIBUTION WIDTH 17.8 % (11.5-14.5)
[2016-10-07 06:44] LABS: CREATININE SERUM 4.8 mg/dL (0.6-1.0)
--- NOTE | 2016-10-07 06:48 | NUR ---
PATIENT RESTING IN BED. RESPIRATION EVEN AND UNLABORED. DENIES PAIN AT THIS TIME. ASSISTED WITH NEEDS. SAFETY OBSERVED. LEFT ARM PRECAUTION OBSERVED. PLACED CALL LIGHT WITHIN REACH AT ALL TIMES.
--- NOTE | 2016-10-07 07:28 | NUR ---
PT IS A+OX4, COMPLAINING OF MILD PAIN, DENIES SOB, NAUSEA, AND HEADACHE, PULSES MODERATE AND EQUAL, NO EDEMA PRESENT, SCDS PRESENT, LUNG SOUNDS CLEAR, TOLERATING ROOM AIR, BOWEL SOUNDS ACTIVE, ABD ROUND AND SOFT, ANURIC, AV SHUNT LFA, THRILL AND BRUIT PRESENT, GENERALIZED WEAKNESS, SCATTERED DRY SCABS BUE/BLE, SALINE LOCK IN RFA, RBC 2.75, HGB 7.7, HCT 25, NA 134, BUN 24.
--- NOTE | 2016-10-07 09:02 | NUR ---
PT RESTING IN BED, NO RESPIRATORY DISTRESS NOTED, COMPLAINING OF PAIN, NORCO GIVEN. WILL CONT TO MONITOR PT PAIN LEVEL.
[2016-10-07 09:08] VITALS: BP 110/50
--- NOTE | 2016-10-07 10:58 | NUR ---
PT RESTING IN BED, STATES PAIN HAS IMPROVED, NO RESPIRATORY DISTRESS NOTED.
--- NOTE | 2016-10-07 11:29 | NUR ---
PT RESTING IN BED, NO RESPIRATORY DISTRESS NOTED, STATES PAIN HAS IMPROVED.
--- NOTE | 2016-10-07 12:48 | NUR ---
PT RESTING IN BED, NO RESPIRATORY DISTRESS NOTED, STATES PAIN AHS IMPROVED, DENIES NAUSEA, SOB, AND HEADACHE. EATING LUNCH.
[2016-10-07 13:00] VITALS: BP 121/54
--- NOTE | 2016-10-07 13:44 | NUR ---
PT RESTING IN BED, NO RESPIRATORY DISTRESS NOTED, COMAPLAINING OF PAIN, FAMILY AT BEDSIDE.
--- NOTE | 2016-10-07 14:38 | NUR ---
PT COMPLAINING OF PAIN, NORCO GIVEN.
--- NOTE | 2016-10-07 15:58 | NUR ---
PT RESTING IN BED, NO RESPIRATORY DISTRESS NOTED, STATES PAIN HAS IMPROVED, DENIES SOB, NAUSEA, AND HEADACHE.
[2016-10-07 16:42] VITALS: BP 118/55
--- NOTE | 2016-10-07 16:55 | NUR ---
PT RESTING IN BED, NO RESPIRATORY DISTRESS NOTED, DENIES PAIN, NAUSEA, SOB, AND HEADACHE.
--- NOTE | 2016-10-07 18:49 | NUR ---
PT RESTING IN BED, NO RESPIRATORY DISTRESS NOTED, COMPLAINING OF PAIN, DENIES SOB, NAUSEA, HEADACHE.
--- NOTE | 2016-10-07 19:57 | NUR ---
PT ALERT AND AWAKE. AOX3. VERBAL WITH CLEAR SPEECH. BREATHING EQUAL AND UNLABORED. NO S/S OF RESPIRATORY DISTRESS NOTED. LUNGS CLEAR BILATERALLY. DENIES ANY CHEST PAIN. ABD DISTENDED, BUT SOFT. BOWEL SOUNDS ACTIVE. LAST BM 10/07/16. SKIN WARM AND DRY. IV TO RIGHT FA PATENT AND INTACT. AV SHUNT TO LEFT FA WITH BRUIT AND THRILL PRESENT. NO EDEMA NOTED. PULSES PALPABLE. PT C/O 7/10 PAIN TO ABD AND LOWER BACK. PRN NORCO 7.5 MG PO GIVEN. CALL LIGHT WITHIN REACH. WILL CONTINUE TO MONITOR.
[2016-10-07 21:00] VITALS: BP 119/54
--- NOTE | 2016-10-08 00:40 | NUR ---
PT RESTING IN BED WITH EYES CLOSED. BREATHING EQUAL AND UNLABORED. NO S/S OF RESPIRATORY DISTRESS NOTED. NO S/S OF PAIN OR DISCOMFORT NOTED. RESTING WITH RELAXED FACIAL FEATURES. CALL LIGHT WITHIN REACH. WILL CONTINUE TO MONITOR.
[2016-10-08 05:27] VITALS: BP 88/39
--- NOTE | 2016-10-08 06:13 | NUR ---
NOTED PT'S BP AT 0530, 88/39, MAP 55. DENIES ANY DIZZINESS OR HEADACHE AT THIS TIME. AT 0600, RECHECKED BP 90/41, MAP 57, HR 61. DR. GALVIN NOTIFIED AND AWARE. PAGE WITH RECHECK BP.
[2016-10-08 06:31] LABS: CARBON DIOXIDE 25.3 mmol/L (21-32); POTASSIUM SERUM 4.3 mmol/L (3.5-5.1)
--- NOTE | 2016-10-08 06:39 | NUR ---
PT SLEPT WELL THROUGH THE NIGHT. BREATHING EQUAL AND UNLABORED. NO S/S OF RESPIRATORY DISTRESS NOTED. EASILY AROUSED WHEN NAME CALLED. RECEIVED ROUTINE MEDICATIONS AND SWALLOWED WITHOUT DIFFICULTY. NO S/S OF DISTRESS OR DISCOMFORT NOTED. RESTING COMFORTABLY WITH RELAXED FACIAL FEATURES. CALL LIGHT WITHIN REACH. WILL CONTINUE TO MONITOR.
[2016-10-08 06:43] LABS: BASOPHIL % 0.5 % (0-2)
--- NOTE | 2016-10-08 06:50 | NUR ---
RECHECKED PT'S BP 93/42, MAP 58, HR 59. PT ALERT AND VERBAL WITH CLEAR SPEECH. DENIES ANY DIZZINESS OR HEADACHE. DR. ALVARADO NOTIFIED AND AWARE.
[2016-10-08 06:54] LABS: PLATELET COUNT 439 x10^3mcL (130-400); RED CELL DISTRIBUTION WIDTH 17.6 % (11.5-14.5)
--- NOTE | 2016-10-08 07:35 | NUR ---
RECEIVED PT IN NO ACUTE DISTRESS. RESTING COMFORTABLY IN BED, NO PAIN NOTED. BREATHING EVEN AND UNLABORED ON RA. AV SHUNT TO L UPPER ARM, BRUIT/THRILL PRESENT. MULT SCABS TO FACE, BUE AND BLE, CROP ADJUSTER, NO DRAINAGE. PT STATES SHE PICKS AT THEM AT TIMES. ABD DISTENDED, SOFT. TENDER TO PALPATION. BAND AID TO R LOWER ABD, C/D/I. IV TO RFA. BED IN LOWEST POSITION, CALL LIGHT WITHIN REACH. WILL CONTINUE TO MONITOR.
[2016-10-08 07:49] LABS: CREATININE SERUM 6.2 mg/dL (0.6-1.0)
[2016-10-08 08:11] VITALS: BP 122/52
[2016-10-08] MEDS ORDERED: NEU100 PO (10:44)
--- NOTE | 2016-10-08 13:03 | NUR ---
PT RESTING IN BED. NO ACUTE DISTRESS. DENIES PAIN AT THIS TIME. WILL CONTINUE TO MONITOR.
[2016-10-08 13:16] VITALS: BP 114/53
[2016-10-08 13:55] VITALS: BP 114/53
--- NOTE | 2016-10-08 15:18 | NUR ---
PT WAS DISCHARGED TO HOME. NO ACUTE DISTRESS. AWAKE, ALERT, ORIENTED. VITAL SIGNS STABLE. RX GIVEN. DISCHARGE EDUCATION PROVIDED. PT VERBALIZED UNDERSTANDING. INSTRUCTED PT TO FOLLOW UP WITH PCP. IV D/C INTACT. BELONGINGS WITH PT. TRANSPORTED VIA WHEELCHAIR. JANETH RYDER ASSISTED PT TO DISCHARGE OFFICE.
== END 2016-10-08 15:18 | disposition home or self-care (01) | DRG 432 ==
LOC: ED 20:37 → DU 22:44 → MU 10-08 00:18
PROVIDERS: Emergency Medicine; Family Medicine; Internal Medicine; ADMIT Family Medicine
PROC: 0W9G3ZZ Drainage of Peritoneal Cavity, Percutaneous Approach (ICD-10-PCS; principal; 2016-10-06)
DX: K74.60 Unspecified cirrhosis of liver (principal); N18.6 End stage renal disease; E43 Unspecified severe protein-calorie malnutrition; I50.43 Acute on chronic combined systolic (congestive) and diastolic (congestive) heart failure; N17.0 Acute kidney failure with tubular necrosis; R18.8 Other ascites; I13.2 Hypertensive heart and chronic kidney disease with heart failure and with stage 5 chronic kidney disease, or end stage renal disease; D68.69 Other thrombophilia; F33.1 Major depressive disorder, recurrent, moderate; E11.65 Type 2 diabetes mellitus with hyperglycemia; E11.319 Type 2 diabetes mellitus with unspecified diabetic retinopathy without macular edema; H44.529 Atrophy of globe, unspecified eye; E11.40 Type 2 diabetes mellitus with diabetic neuropathy, unspecified; E11.59 Type 2 diabetes mellitus with other circulatory complications; I25.10 Atherosclerotic heart disease of native coronary artery without angina pectoris; I27.2 Other secondary pulmonary hypertension; E78.5 Hyperlipidemia, unspecified; E03.9 Hypothyroidism, unspecified; F42.4 Excoriation (skin-picking) disorder; F41.9 Anxiety disorder, unspecified; G47.00 Insomnia, unspecified; Z99.2 Dependence on renal dialysis; Z68.28 Body mass index [BMI] 28.0-28.9, adult; Z95.1 Presence of aortocoronary bypass graft; Z87.891 Personal history of nicotine dependence; Z91.15 Patient's noncompliance with renal dialysis; Z79.02 Long term (current) use of antithrombotics/antiplatelets; Z79.82 Long term (current) use of aspirin; Z79.4 Long term (current) use of insulin
CPT/HCPCS: 49083; 82962; 83880; 84439; J2270; J2405; J7030; Q0092; Q9966

== ENCOUNTER 2016-10-29 18:26 | Inpatient (IN) | payer OTHER ==
[~2016-10-29] VITALS: Ht 170.2 cm; Wt 73.5 kg
[~2016-10-29 18:26] MED LIST changes: +LEVOTHYROXINE0.1 M2 PO
[2016-10-29 21:38] LABS: BASOPHIL % 0.6 % (0-2)
[2016-10-29 21:39] LABS: PLATELET COUNT 498 x10^3mcL (130-400); RED CELL DISTRIBUTION WIDTH 17.3 % (11.5-14.5)
[2016-10-29 21:42] LABS: CALCIUM 7.7 mg/dL (8.5-10.1); CARBON DIOXIDE 20.7 mmol/L (21-32)
[2016-10-29 21:44] LABS: POTASSIUM SERUM 7.2 mmol/L (3.5-5.1)
[2016-10-29 21:45] LABS: CREATININE SERUM 11.8 mg/dL (0.6-1.0)
[2016-10-30] VITALS (7 sets, daily range): BP systolic 116–165; BP diastolic 47–71
[2016-10-30 01:27] LABS: CALCIUM 7.4 mg/dL (8.5-10.1); CARBON DIOXIDE 19.6 mmol/L (21-32)
[2016-10-30 01:28] LABS: T3 TOTAL 0.37 ng/mL
[2016-10-30 01:30] LABS: CREATININE SERUM 11.9 mg/dL (0.6-1.0)
[2016-10-30 01:43] LABS: FREE T4 0.39 ng/dL (0.76-1.46); FREE THYROXINE INDEX 2.2 ug/dL (1.4-4.5); T4(THYROXINE) 6.7 ug/dL (4.7-13.3)
[2016-10-30 01:58] LABS: MAGNESIUM 2.3 mg/dL (1.8-2.4); PHOSPHOROUS 8.7 mg/dL (2.5-4.9)
[2016-10-30 02:01] LABS: CHOLESTEROL/HDL RATIO 5.6
[2016-10-30 17:44] LABS: CALCIUM 8.4 mg/dL (8.5-10.1); CARBON DIOXIDE 29.2 mmol/L (21-32); POTASSIUM SERUM 3.5 mmol/L (3.5-5.1)
[2016-10-30 17:47] LABS: CREATININE SERUM 6.6 mg/dL (0.6-1.0)
[2016-10-31 06:24] VITALS: BP 142/60
[2016-10-31 06:35] LABS: BASOPHIL % 0.7 % (0-2)
[2016-10-31 06:37] LABS: PLATELET COUNT 492 x10^3mcL (130-400); RED CELL DISTRIBUTION WIDTH 17.5 % (11.5-14.5)
[2016-10-31 07:06] LABS: CALCIUM 8.3 mg/dL (8.5-10.1); CARBON DIOXIDE 26.8 mmol/L (21-32); MAGNESIUM 1.9 mg/dL (1.8-2.4); PHOSPHOROUS 6.9 mg/dL (2.5-4.9); POTASSIUM SERUM 3.9 mmol/L (3.5-5.1)
[2016-10-31 07:11] LABS: CREATININE SERUM 7.4 mg/dL (0.6-1.0)
[2016-10-31 09:23] VITALS: BP 141/60
[2016-10-31 16:35] VITALS: BP 108/46
[2016-10-31 21:52] VITALS: BP 129/51
[2016-11-01 06:11] VITALS: BP 135/60
[2016-11-01 10:26] VITALS: BP 115/51
[2016-11-01 11:26] LABS: BASOPHIL % 0.4 % (0-2)
[2016-11-01 11:28] LABS: PLATELET COUNT 596 x10^3mcL (130-400); RED CELL DISTRIBUTION WIDTH 17.4 % (11.5-14.5)
[2016-11-01 12:51] LABS: CALCIUM 8.6 mg/dL (8.5-10.1); CARBON DIOXIDE 23.3 mmol/L (21-32); POTASSIUM SERUM 4.4 mmol/L (3.5-5.1)
[2016-11-01 13:08] LABS: CREATININE SERUM 8.9 mg/dL (0.6-1.0)
[2016-11-01 16:55] VITALS: BP 152/66
[2016-11-01 22:06] VITALS: BP 134/56
[2016-11-02 05:29] VITALS: BP 137/56
[2016-11-02 06:03] LABS: BASOPHIL % 0.5 % (0-2)
[2016-11-02 06:23] LABS: CALCIUM 9.1 mg/dL (8.5-10.1); CARBON DIOXIDE 29.3 mmol/L (21-32); POTASSIUM SERUM 4.3 mmol/L (3.5-5.1)
[2016-11-02 06:24] LABS: PLATELET COUNT 534 x10^3mcL (130-400); RED CELL DISTRIBUTION WIDTH 17.6 % (11.5-14.5)
[2016-11-02 06:55] LABS: CREATININE SERUM 5.7 mg/dL (0.6-1.0)
[2016-11-02 08:40] VITALS: BP 112/50
[2016-11-02 17:59] VITALS: BP 113/52
[2016-11-02 22:00] VITALS: BP 134/56
[2016-11-03 05:28] VITALS: BP 136/60
[2016-11-03] MEDS ORDERED: APAP/HYDROCODON1 T13 PO (05:44)
[2016-11-03 06:20] VITALS: BP 136/60
[2016-11-03 06:40] LABS: CALCIUM 8.9 mg/dL (8.5-10.1); CARBON DIOXIDE 26.5 mmol/L (21-32); POTASSIUM SERUM 4.1 mmol/L (3.5-5.1)
[2016-11-03 06:48] LABS: CREATININE SERUM 7.1 mg/dL (0.6-1.0)
[2016-11-03 08:00] VITALS: BP 136/53
[2016-11-03 08:06] LABS: BASOPHIL % 0.3 % (0-2)
[2016-11-03 08:07] LABS: PLATELET COUNT 513 x10^3mcL (130-400); RED CELL DISTRIBUTION WIDTH 16.7 % (11.5-14.5)
[2016-11-03] MEDS ORDERED: CYCLOBENZAPRINE5 MG PO (09:12)
[2016-11-03 10:00] VITALS: BP 106/59
== END 2016-11-03 13:33 | disposition home or self-care (01) | DRG 640 ==
LOC: ED 18:26 → MU 10-30 00:18 → DU 10-30 00:18 → MU 10-30 00:18 → DU 10-30 01:08 → MU 10-30 14:22
PROVIDERS: Emergency Medicine; Family Medicine; ADMIT Family Medicine
DX: E87.5 Hyperkalemia (principal); G93.41 Metabolic encephalopathy; N17.0 Acute kidney failure with tubular necrosis; N18.6 End stage renal disease; I50.43 Acute on chronic combined systolic (congestive) and diastolic (congestive) heart failure; I13.2 Hypertensive heart and chronic kidney disease with heart failure and with stage 5 chronic kidney disease, or end stage renal disease; I42.9 Cardiomyopathy, unspecified; E87.1 Hypo-osmolality and hyponatremia; E11.319 Type 2 diabetes mellitus with unspecified diabetic retinopathy without macular edema; E11.40 Type 2 diabetes mellitus with diabetic neuropathy, unspecified; E83.39 Other disorders of phosphorus metabolism; L98.1 Factitial dermatitis; H54.41 Blindness, right eye, normal vision left eye; E03.9 Hypothyroidism, unspecified; K21.9 Gastro-esophageal reflux disease without esophagitis; F41.8 Other specified anxiety disorders; D63.1 Anemia in chronic kidney disease; G47.00 Insomnia, unspecified; E78.5 Hyperlipidemia, unspecified; I25.2 Old myocardial infarction; Z95.1 Presence of aortocoronary bypass graft; Z99.2 Dependence on renal dialysis; Z68.28 Body mass index [BMI] 28.0-28.9, adult; Z91.15 Patient's noncompliance with renal dialysis; Z87.891 Personal history of nicotine dependence; I25.10 Atherosclerotic heart disease of native coronary artery without angina pectoris
CPT/HCPCS: 82962; 83880; 84439; 97110-GP; 97116-GP; 97530-GP; J0610; J1815; J2270; J3490; J7030; Q0092; Q0162